=== PATIENT | female | born 2005 | race Caucasian/White ===

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

== ENCOUNTER 2024-08-30 14:42 | Outpatient (CLI) | payer OTHER, SELFPAY ==
--- OUTSIDE RECORDS SUMMARY | 2024-09-01 09:38 | XMS_ITS | Patient Health Record ---
Author Organization [facility] Address [address] [place], [place] [id number] Care Team Providers Care Rn Endocrinology Name Role Phone UNI, ATHLETIC TRAINING OFFICE Primary Care Provi vishal Unavailable Reason For Referral No Information Problems Problem Type SNOMED Code ICD Code Onset Dates Problem Status W/U Status Risk Notes Problem [id number] Status post laparoscopic appendectomy (Z90.49) Active confirmed Plan Of Treatment No Information Insurance Providers Payer Name Payer Address Payer Phone Subscriber Number Group Number Insured Name Patient Relationship to Insured Coverage Start Date Coverage End Date PROGRESSIVE [address] [place] [address] [id number] DAYA PHILLIPS Self - patient is the insured 3
--- OUTSIDE RECORDS SUMMARY | 2024-09-01 09:38 | XMS_ITS | Clinical Summary ---
Author Organization [facility] Address [place], [place] [address] Care Team Providers Care Fashion Merchandiser Name Role Phone Nanci Barraza Primary Care Provider Allergies No known active allergies Medications Medication Sig Dispensed Refills Start Date End Date Status albuterol HFA (PRO-AIR; VENTOLIN; PROVENTIL) 90 mcg/actuation inhalerIndication s:Exercise-induce d asthma Inhale 1-2 Puffs by mouth every 4 hours if needed for Shortness Of Breath or Wheezing. 1 Each 3 04/12/2024 Active tretinoin (RETIN-A) 0.025 % creamIndications: Acne, unspecified acne type Apply topically to affected area(s) at bedtime. 135 g 3 04/12/2024 Active amoxicillin 875 mg tablet Take 875 mg by mouth two times daily. 08/25/2024 Active levonorgestrel-et hinyl estrad, 0.1mg-20mcg, (ALESSE-28) 0.1-20 mg-mcg tabletIndications :Acne, unspecified acne type Take 1 Tablet by mouth once daily. 84 Tablet 3 04/12/2024 08/29/2024 Discontinued (*Allergic/A dverse Rxn/Side Effects) Hospital, Clinic, or Other Facility Administered Medication Ordered Dose Route Frequency Start Date End Date Status etonogestrel subdermal implant (NEXPLANON) 68 mg implant 1 EachIndications:Nexplanon insertion 1 Each Sdrm Q 3 YEARS 08/30/2024 08/30/2024 Ended Active Problems Problem Noted Date Diagnosed Date Exercise-induced asthma 11/15/2021 Generalized anxiety disorder 12/02/2020 Chronic insomnia 12/02/2020 Routine infant or child health check 01/22/2015 Encounters Date Type Department Care Team Description 08/30/2024 10:00 AM [facility] SWITCH ADJUSTER Procedure Only [address] [address] Saira Klein PA Procedure (nexplanon insertion) 08/30/2024 Travel 08/29/2024 11:00 AM [facility]OS[facility]AR SWITCH ADJUSTER Office Visit [address] [address] Saira Klein PA Presales Senior Specialist Exam (discuss control options/tried the pill did not like it and a lot of hormonal things) 08/29/2024 9:30 AM [facility]OSSBAR SWITCH ADJUSTER Office Visit [facility] [address] [place] [address] Nanci Barraza PA Concerns (Been sick a lot in the past 2 years, is currently on antibiotic, was told she should get her tonsils out) 08/28/2024 Travel 06/03/2024 Telephone [facility] [address] [place] [address] Nanci Barraza PA Questions (Doctor's note re: Asthma) from Last 3 Months Immunizations Name Administration Dates Next Due AMB Influenza, IIV4 PF (=>6 mos Flulaval,Fluzone Fluarix)(Flu Clinic Only) 08/21/2014 COVID-19 vaccine ([employer] NTStormMQ 30mcg/0.3mL) PF, MDV 02/20/2021,01/30/2021 DTaP 04/29/2006,2004,2004 [id number] (Pediarix) 04/11/2005,2004,0 2004 DTaP-IPV (Kinrix) 12/11/2009 HIB PRP-OMP (PedvaxHIB) 04/29/2006,2004, HIB-HepB (Comvax) 2004,2004 HPV 9 (Gardasil 9) 03/21/2020,04/20/2019 Hepatitis A (Peds) 04/01/2017,01/19/2015 Hepatitis B (Peds) 2004 Inactivated Polio Vaccine 2004,2004 Influenza, IIV3 (Age >=3 years) 09/01/2007,08/27 MENINGOCOCCAL VACCINE 2 VIAL 2MO-55YO (MENVEO) 03/25/2022,04/01/2017 MMR 12/11/2009,08/27/2005 Pneumococcal conj 7-Valent (Prevnar 7) 0 04/29/2006,04/11/2005,2004,10/21 Tdap 04/01/2017 Varicella Vaccine 12/11/2009,08/27/2005 Family History Medical History Relation Name Comments Cancer-prostate Maternal Grandfather Other Maternal Grandfather post op PE Hypertension Maternal Grandmother Allergies Mother Thyroid Disease Mother Diabetes Paternal Grandmother Asthma Sister exercise induce d asthma Relation Name Status Comments Father Alive Maternal Grandfather Maternal Grandmother Mother Alive Paternal Grandmother Sister Alive Social History Tobacco Use Types Packs/Day Years Used Date Smoking Tobacco: Never Smokeless Tobacco: Never Tobacco Cessation:Counseling Given: No Comments:No exposure Alcohol Use Standard Drinks/Week Comments No 0 (1 standard drink = 0.6 oz pur e alcohol) PHQ-2 Answer Date Recorded PHQ-2 TOTAL SCORE 0 04/12/2024 Social Connections Answer Date Recorded Do you often feel lonely or isolated from those around you? 0 04/12/2024 Financial Resource Strain Answer Date R ecorded Difficulty of Paying Living Expenses 3 04/12/2024 Difficulty of Paying Living Expenses Not on file 04/12/2024 Food Insecurity Answer Date Recorded Do you worry your food will run out before you are able to buy more? 1 04/12/2024 Transportation Needs Answer Date Record ed Does lack of transportation keep you from medica l appointments? 1 04/12/2024 Does lack of transportation keep you from work, meetings or getting things that you need? 1 04/12/2024 Housing Stability Answer Date Recorded What is your housing situation today? 1 04/12/2024 Sex and Gender Information Value Date Recorded Sex Assigned at Not on file Gender Identity Not on file Sexual Orientation Not on file Obstetrics History Last Filed Vital Signs Vital Sign Reading Time Taken Comments Blood Pressure 88/60 08/30/2024 10:39 AM [facility] SWITCH ADJUSTER Pulse 80 08/30/2024 10:03 AM [facility]OS[facility]AR SWITCH ADJUSTER Temperature 36.7 C (98.1 F) 11/19/2022 11:42 AM [facility]OS[facility]AR SWITCH ADJUSTER Respiratory Rate 18 08/23/2015 7:52 AM CROSSBAR SWITCH ADJUSTER Oxygen Saturation 98% 06/09/2023 8:22 AM CDT Inhaled Oxygen Concentration - - Weight 60 kg (132 lb 3.2 oz) 08/30/2024 10:03 AM CROS[facility]AR SWITCH ADJUSTER Height 166.4 cm (5' 5.5) 04/12/2024 10:39 AM CD T Body Mass Index - - Plan of Treatment Health Maintenance Due Date Last Done Comments HIV for age 15-65 2019 Chlamydia for age 16-24 2020 Hepatitis C screening for age 18-79 2022 COVID-19 vaccine series (2023- season) 2024 02/20/2021, 01/30/2021 Influenza for age 9-49 06/05/2024 4, 09/01/2007, 08/27/2005 BMI (ht and wt on same day) for age 18+ 04/12/2025 04/12/2024, 04/27/2023, 01/19/2023 Depression screening for age 12+ 04/12/2025 04/12/2024, 04/29/2023, 04/27/2023, Additional history exists Well Child Check for age 3-20 04/12/2025 04/12/2024, 04/27/2023, 03/25/2022, Additional history exists Tetanus booster 04/01/2027 04/01/2017 Pneumococcal series for age 6-64 Aged Out 04/29/2006, 04/11/2005, 2004, Additional history exists No longer eligible based on patient's age to complete this topic Tdap Completed 04/01/2017 HPV series for age 9-26 Completed 03/21/2020, 04/20 Meningococcal series for age 11-21 Completed 03/25/2022, 04/01/2017 Procedures Procedure Name Priority Date/Time Associated Diagnosis Comments URINE POCT Patient wait 08/30/2024 10:17 AM [facility] SWITCH ADJUSTER Encounter for test, result unknown from Last 3 Months Results * URINE POCT (08/30/2024 10:17 AM [facility]OS[facility]AR SWITCH ADJUSTER) POC HCG URINE NEGATIVE NEGATIVE [facility]) Urine URINE SPECIMEN / Unknown 08/30/2024 10:17 AM CROSSBAR SWITCH ADJUSTER 08/30/2024 10:17 AM [facility] SWITCH ADJUSTER Saira CAI URINE [facility] [address] [place] [address], [facility]Urgent Care) [address] [place] [address] from Last 3 Months Care Teams Fashion Merchandiser Relationship Specialty Start Date End Date Nanci Barraza PA [address] [place] [id number] PCP - General Physician Aerologist 03/12/20
--- OUTSIDE RECORDS SUMMARY | 2024-09-01 09:38 | XMS_ITS | Clinical Summary ---
Author Organization [facility] Address [address] [place] [address] Care Team Providers Care Telegraphic Instrument Supervisor Name Role Phone Unknown, Primary Care Provider Unavailabl e Social History Tobacco Use Types Packs/Day Years Used Date Smoking Tobacco: Never Assessed Sex and Gender Information Value Date Recorded Sex Assigned at Not on file Gender Identity Not on file Sexual Orientation Not on file Plan of Treatment Health Maintenance Due Date Last Done Comments Hepatitis B Vaccines (1 of 3 - 3-dose series) 2004 Hepatitis C Screening 2004 COVID-19 Vaccine (#1) 02/19/2005 Depression Screening 2016 Gonorrhea and Chlamydia Screening 2017 Preventative Health Evaluation 2022 DTap / Tdap / Td (1 - Tdap) 2023 Influenza Vaccine (#1) 2024 Pneumococcal Vaccine Aged Out No long er eligible based on patient's age to complete this topic RSV Ped < 20 months Aged Out No longe r eligible based on patient's age to complete this topic Care Teams Telegraphic Instrument Supervisor Relationship Specialty Start Date End Date Unknown, PCP - General 06/03/23
== END 2024-08-30 14:43 | disposition home or self-care (01) ==
LOC: NFLDREF 09-01 09:37
DX: R39.15 Urgency of urination (principal)
CPT/HCPCS: 87086

== ENCOUNTER 2024-09-23 13:18 | Outpatient (CLI) | payer OTHER, SELFPAY | END 2024-09-23 13:19 | disposition home or self-care (01) | LOC: NFLDREF 09-24 20:29 | PROVIDERS: Visit Provider Physician Assistant | DX: R30.0 Dysuria (principal) | CPT/HCPCS: 87086 ==